=== PATIENT | female | born 1960 | race Caucasian/White ===

== ENCOUNTER 2020-02-27 18:26 | Emergency (ER) | payer OTHER, SELFPAY ==
--- NOTE | 2020-02-27 18:36 | ED.SKABFB ---
HPI - Skin/Abscess/Foreign Bdy General Chief complaint: Skin/Abscess/Foreign Body Stated complaint: insect bite Time Seen by Provider: 02/27/20 18:45 Source: patient and RN notes reviewed Mode of arrival: ambulatory Limitations: no limitations History of Present Illness HPI narrative: 59 female presents with concern for insect bite to her right upper arm. Reports she noticed the area was itching around 4:00 this morning. Reports noticing redness when she woke up. Reports been putting hydrocortisone cream on it and took Benadryl 1 time prior to arrival. She denies any difficulty breathing, swallowing, swollen tongue, swollen lips. MD complaint: insect bite/sting Related Data Home Medications Medication Instructions Recorded Confirmed acyclovir 400 mg BID 02/27/20 02/27/20 alprazolam 2 mg TID PRN 02/27/20 02/27/20 ascorbic [id number] 1,000 mg PO DAILY 02/27/20 02/27/20 [Emergen-C] calcium carbonate-vitamin D3 cap PO DAILY 02/27/20 [Calcium 600 + D(3)] ergocalciferol (vitamin D2) 1,250 mcg [id number] 02/27/20 02/27/20 linaclotide [Linzess] 145 mcg PO DAILY 02/27/20 02/27/20 omeprazole 40 mg DAILY 02/27/20 02/27/20 propranolol 5 mg BID 02/27/20 02/27/20 Allergies Allergy/AdvReac Type Severity Reaction Status Date / Time codeine Allergy Mild Palpitation Verified 02/27/20 18:31 s hydrocodone Allergy Unknown Unknown Verified 02/27/20 18:31 caffeine AdvReac Mild Palpitation Verified 02/27/20 18:31 s aspirin AdvReac Unknown Makes her Verified 02/27/20 18:31 blood too thin Review of Systems Review of Systems: Narrative: CONSTITUTIONAL: Denies malaise, chills, sweats, or fever. ENT: Denies swollen tongue, swollen lips, difficulty swallowing CARDIOVASCULAR: Denies chest pain, palpitations, or edema. RESPIRATORY: Denies cough or dyspnea. GASTROINTESTINAL: Denies abdominal pain, nausea, vomiting, diarrhea SKIN: Reports red itchy spot on her right upper arm All systems reviewed & are unremarkable except as noted in HPI and below PMFSH Social History Social History Gender identity (if verbalized by the patient): Female Comments At time of signature, agree with nursing past medical, surgical, social and family history. There is no relevant family history pertinent to the presenting complaint Exam Narrative: Exam Narrative: GENERAL: Well-appearing, well-nourished, and in no acute distress. HEAD: Normocephalic EYES: PERRLA, conjunctivae clear ENT: Mucous membranes moist. NECK: Supple. CHEST: No respiratory distress. Speaks in full sentences. HEART: Regular rate and rhythm. SKIN: Warm, dry. 5 cm a 4 cm area of erythema, mild edema, no induration, no warmth noted to the right upper arm, no other rash noted. NEURO: Alert and oriented x3. PSYCH: Normal mood and affect Course Course Emergency Course: Patient is aware of diagnosis, understands and agrees to treatment plan. Anticipatory guidance given. Patient agrees to follow-up as directed and is aware of reasons to seek care at the emergency department. Portions of this record may have been created with voice recognition software Vital Signs Vital signs: Vital Signs Temperature 98.3 F 02/27/20 18:39 Pulse Rate 72 02/27/20 18:39 Respiratory Rate 16 02/27/20 18:39 Blood Pressure 127/70 02/27/20 18:39 Pulse Oximetry 99 02/27/20 18:39 Temperature 98.3 F 02/27/20 18:39 Pulse Rate 72 02/27/20 18:39 Respiratory Rate 16 02/27/20 18:39 Blood Pressure 127/70 02/27/20 18:39 Pulse Oximetry 99 02/27/20 18:39 Reviewed. MDM - Skin/Abscess/Foreign Bdy MDM Narrative Medical decision making narrative: Does not appear at this time to be erythema multiforme, bullous, SJS, TEN; no evidence at this time to suggest RMSF, endocarditis or Lyme disease; patient looks well, nontoxic and is tolerating oral intake; no neurologic signs or symptoms; no headache, photophobia or neck pain; afebrile; appropriate for initial out
[2020-02-27 18:39] VITALS: BP 127/70; PULSE 72; RESP 16; TEMP 36.8; O2SAT 99
== END 2020-02-27 19:00 | disposition home or self-care (01) ==
PROVIDERS: Emergency Provider Nurse Practitioner; PCP Nurse Practitioner Family
DX: S40.861A Insect bite (nonvenomous) of right upper arm, initial encounter (principal); W57.XXXA Bitten or stung by nonvenomous insect and other nonvenomous arthropods, initial encounter; K21.9 Gastro-esophageal reflux disease without esophagitis
CPT/HCPCS: 99213; G0463

== ENCOUNTER 2020-10-30 10:31 | Emergency (ER) | payer OTHER, SELFPAY ==
[2020-10-30 10:48] VITALS: BP 135/68; PULSE 68; RESP 16; TEMP 36.4; O2SAT 99
[2020-10-30 10:59] VITALS: BP 135/68; PULSE 68; RESP 16; TEMP 36.4; O2SAT 99
--- NOTE | 2020-10-30 11:12 | ED.SKABFB ---
HPI - Skin/Abscess/Foreign Bdy General Chief complaint: Skin/Abscess/Foreign Body Stated complaint: Rash on Neck Time Seen by Provider: 10/30/20 10:49 Source: patient and RN notes reviewed Mode of arrival: ambulatory Limitations: no limitations History of Present Illness HPI narrative: Patient presents today complaining of a 4-day history of pruritic rash to her neck. States that she has woken up the last 2-3 nights with new lesions after sweating. Reports she lives alone with no pets. She has been using hydrocortisone, which does help shrink the lesions down. States she does have OCD and sprays her home down with insect killing sprays frequently. She does not have any other lesions on any other parts of her body. No new exposures to household products, plants or animals. MD complaint: rash Related Data Home Medications Medication Instructions Recorded Confirmed acyclovir 400 mg BID 02/27/20 10/30/20 alprazolam 2 mg TID PRN 02/27/20 10/30/20 ascorbic grcn-zeixqppr-guo 1,000 mg PO DAILY 02/27/20 10/30/20 [Emergen-C] calcium carbonate-vitamin D3 1 cap PO BID 02/27/20 10/30/20 [Calcium 600 + D(3)] ergocalciferol (vitamin D2) 1,250 mcg [id number] 02/27/20 10/30/20 linaclotide [Linzess] 145 mcg PO DAILY 02/27/20 10/30/20 omeprazole 20 mg DAILY 02/27/20 10/30/20 propranolol 5 mg BID 02/27/20 10/30/20 acetaminophen 500 mg PO Q4-6H PRN 10/30/20 10/30/20 albuterol sulfate [Ventolin HFA] 1 - 2 puff INHALATION Q4H PRN 10/30/20 10/30/20 Allergies Allergy/AdvReac Type Severity Reaction Status Date / Time caffeine AdvReac Mild Palpitation Verified 10/30/20 11:08 s aspirin AdvReac Unknown Makes her Verified 10/30/20 11:08 blood too thin Review of Systems Review of Systems: Narrative: CONSTITUTIONAL: Denies body aches, fever, chills, or sweats. EYES: Denies visual changes, redness, or discharge. ENT: Denies rhinorrhea, congestion, sore throat, or otalgia. CARDIOVASCULAR: Denies chest pain, palpitations, or edema. RESPIRATORY: Denies cough or dyspnea. GASTROINTESTINAL: Denies abdominal pain, nausea, vomiting, or diarrhea. GENITOURINARY: Denies dysuria or hematuria. SKIN: Denies wounds. + Rash MUSCULOSKELETAL: Denies back pain, joint pain, or myalgia. NEUROLOGIC: Denies headache, numbness, tingling, or weakness. PSYCH: Denies depression or anxiety. [facility] Past Medical History Medical History (Updated 10/30/20 @ 13:41 by Karolina Pruitt, [facility], ) Anxiety GERD (gastroesophageal reflux disease) Irritable bowel syndrome Mitral valve prolapse OCD (obsessive compulsive disorder) Surgical History Surgical History (Updated 10/30/20 @ 13:41 by Karolina Pruitt, [facility], ) H/O: hysterectomy Social History Social History Gender identity (if verbalized by the patient): Female Comments At time of signature, I have reviewed and agree with nursing past medical, surgical, social and family history unless otherwise noted. Please see nursing chart for further information. There is no relevant family history pertinent to the presenting complaint Exam Narrative: Exam Narrative: GENERAL: Well-appearing, well-nourished, and in no acute distress. HEAD: Normocephalic, atraumatic. EYES: EOMI. No redness or drainage. Conjunctivae normal. ENT: Mucous membranes pink and moist. NECK: Normal AROM. Supple. No lymphadenopathy. 2 ~1cm urticarial lesions to the posterior neck. 2 2mm scabbed lesions to the right neck that are older lesions that shrunk after applying cortisone cream. Patient also has a skin tag to the right anterior neck that she has been scratching and squeezing that is quite irritated. CHEST: No respiratory distress. EXTREMITIES: Normal range of motion. No edema. SKIN: Warm, dry. Capillary refill normal. Normal skin turgor. NEURO: No focal deficits. Alert and oriented x3. Gait steady. PSYCH: Normal affect. No signs of depression or anxiety. Course Vital Signs Vital signs: Vital Signs Te
== END 2020-10-30 11:21 | disposition home or self-care (01) ==
PROVIDERS: Emergency Provider Nurse Practitioner; PCP Nurse Practitioner Family
DX: L50.9 Urticaria, unspecified (principal); K21.9 Gastro-esophageal reflux disease without esophagitis; I34.1 Nonrheumatic mitral (valve) prolapse; F41.9 Anxiety disorder, unspecified; F42.9 Obsessive-compulsive disorder, unspecified
CPT/HCPCS: 99213; G0463

== ENCOUNTER 2022-01-17 12:23 | Outpatient (CLI) | payer OTHER, SELFPAY ==
--- NOTE | ~2022-01-17 | CT_ITS ---
EXAMINATION:CT lung screening DATE: 01/17/2022 12:46 INDICATION: Nicotine dependence, cigarettes, uncomplicated. Current smoker with 50 pack year history. TECHNIQUE: Computed tomography (CT) of the chest was performed without intravenous contrast. Automate d exposure control and iterative reconstruction technique were employed. The dose-length product (DLP ) was 58.44 mGy-cm. COMPARISON: Chest CT 11/01/2010 FINDINGS: There is mild emphysema. The lungs demonstrate minimal atelectasis. There is a 12 mm ground glass opacity in left lower lobe. There is a 13 mm groundglass opacity in left upper lobe. No pleura l effusion. No pleural effusion. The heart size is normal. No pericardial effusion. There is mild tho racic spondylosis. IMPRESSION: 1. Lung-RADS category 2: Benign appearance or behavior. Continue annual screening with noncontrast lo w-dose chest CT in 12 months. Reviewed, dictated and finalized at location B. IMPRESSION: 1. Lung-RADS category 2: Benign appearance or behavior. Continue annual screeni ng with noncontrast low-dose chest CT in 12 months.
== END 2022-01-17 12:24 | disposition home or self-care (01) ==
PROVIDERS: PCP Nurse Practitioner Family; Visit Provider Nurse Practitioner Family
DX: F17.210 Nicotine dependence, cigarettes, uncomplicated (principal)
CPT/HCPCS: 71271

== ENCOUNTER 2022-01-30 20:36 | Emergency (ER) | payer OTHER, SELFPAY ==
[2022-01-30 20:38] VITALS: BP 136/79; PULSE 78; RESP 18; TEMP 36.5; O2SAT 98
--- NOTE | 2022-01-30 21:04 | ED.DENTAL ---
HPI - Dental/Oral General Chief complaint: Dental/Oral Stated complaint: Roof of mouth pain Time Seen by Provider: 01/30/22 20:57 History of Present Illness HPI Narrative: 61-year-old female presents to the emergency room for evaluation of burning sensation to the roof of her mouth. Patient states 2 days ago she vomited twice, and afterwards noticed a flat white lesions on the roof of her mouth with a burning sensation. Patient states that she tried Tylenol and it did not help her symptoms. Related Data Home Medications Medication Instructions Recorded Confirmed acyclovir 400 mg tablet 400 mg BID 02/27/20 10/30/20 alprazolam 2 mg tablet 2 mg TID PRN Anxiety 02/27/20 10/30/20 ascorbic acid 1,000 1,000 mg PO DAILY 02/27/20 10/30/20 de-uhgollcbeuiq-ckcsauwo powder effervescent pack (Emergen-C) calcium carbonate 600 mg-vitamin 1 cap PO BID 02/27/20 10/30/20 D3 5 mcg (200 unit) capsule (Calcium 600 + D(3)) ergocalciferol (vitamin D2) 1,250 1,250 mcg [id number] 02/27/20 10/30/20 mcg (50,000 unit) capsule linaclotide 145 mcg capsule 145 mcg PO DAILY 02/27/20 10/30/20 (Linzess) omeprazole 40 mg capsule,delayed 20 mg DAILY 02/27/20 10/30/20 release propranolol 10 mg tablet 5 mg BID 02/27/20 10/30/20 acetaminophen 500 mg tablet 500 mg PO Q4-6H PRN Pain 10/30/20 10/30/20 albuterol sulfate 90 mcg/actuation 1 - 2 puff inhalation Q4H PRN 10/30/20 10/30/20 aerosol inhaler (Ventolin HFA) Shortness Of Breath Allergies Allergy/AdvReac Type Severity Reaction Status Date / Time caffeine AdvReac Mild Palpitation Verified 10/30/20 11:08 s aspirin AdvReac Unknown Makes her Verified 10/30/20 11:08 blood too thin Review of Systems Review of Systems: CONSTITUTIONAL: Denies fever, chills, or sweats. EYES: Denies visual changes, redness, or discharge. ENT: Reports mouth pain CARDIOVASCULAR: Denies chest pain, palpitations, or edema. RESPIRATORY: Denies cough or dyspnea. GASTROINTESTINAL: Denies abdominal pain, nausea, vomiting, or diarrhea. GENITOURINARY: Denies dysuria or hematuria. SKIN: Denies rash or itching. MUSCULOSKELETAL: Denies back pain, joint pain, or myalgia. NEUROLOGIC: Denies headache, numbness, dizziness, or weakness. PSYCHIATRIC: Denies anxiety or depression. [facility] Past Medical History Medical History Anxiety GERD (gastroesophageal reflux disease) Irritable bowel syndrome Mitral valve prolapse OCD (obsessive compulsive disorder) Surgical History Surgical History H/O: hysterectomy Social History Social History Gender identity (if verbalized by the patient): Female Exam Narrative: GENERAL: Well-appearing, well-nourished, no physical limitations, and in no acute distress. HEAD: Normocephalic, atraumatic. EYES: Conjunctivae normal, PERRLA and EOMI. ENT: Mucous membranes moist. Multiple discrete ulcerations to the roof of the mouth with erythematous margins CHEST: Clear to auscultation. No respiratory distress. No wheezes rales or rhonchi. No tenderness. HEART: Regular rate and rhythm. No murmur heard. Normal peripheral pulses. BACK: No CVA tenderness; No cervical/thoracic/lumbar tenderness, step-offs, bony abnormality; FROM EXTREMITIES: Normal range of motion. No edema. No clubbing or cyanosis SKIN: Warm, dry, no rash. No noted wounds NEURO: No focal deficits. Alert and oriented x3. MAEW. CN's II-XI intact bilaterally, normal gait PSYCH: Cooperative. Normal mood and affect. Course Vital Signs Vital signs: Vital Signs Temperature 36.5 C 01/30/22 20:38 Pulse Rate 78 01/30/22 20:38 Respiratory Rate 18 01/30/22 20:38 Blood Pressure 136/79 01/30/22 20:38 Pulse Oximetry 98 01/30/22 20:38 Oxygen Delivery Room Air 01/30/22 20:38 Temperature 36.5 C 01/30/22 20:38 Pulse Rate 78 01/30/22
[2022-01-30] MEDS: LIDOCAINE HCL 2% VISC SOLN 15 ML UDC (21:18)
== END 2022-01-30 21:25 | disposition home or self-care (01) ==
LOC: ANHED 21:07
PROVIDERS: Emergency Provider Nurse Practitioner Family; PCP Nurse Practitioner Family
DX: K12.0 Recurrent oral aphthae (principal); I34.1 Nonrheumatic mitral (valve) prolapse; K21.9 Gastro-esophageal reflux disease without esophagitis; K58.9 Irritable bowel syndrome, unspecified; F41.9 Anxiety disorder, unspecified; F42.9 Obsessive-compulsive disorder, unspecified; Z90.710 Acquired absence of both cervix and uterus
CPT/HCPCS: 96372; 99283; J1100

== ENCOUNTER 2022-09-21 12:43 | Outpatient (CLI) | payer OTHER, SELFPAY ==
--- NOTE | ~2022-09-21 | DEXA_ITS ---
Bone Density Report Name: LUIS ANGEL CLINTON Age: 62 Sex: Female Ethnicity: White Date of : 1960 Indication: postmenopausal; screening for osteoporosis; inflammatory bowel disease; prior fracture; asthma or emphysema; hysterectomy; Referring Provider: REFUGIODAR Study: Bone densitometry was performed. Exam Date: September 21, 2022 Accession number: [id number] Bone Density: Region BMD T-score Z-score Classification AP Spine(L1-L4) 0.788 -2.4 -0.9 Osteopenia Femoral Neck (Left) 0.527 -2.9 -1.6 Osteoporosis Total Hip (Left) 0.663 -2.3 -1.3 Osteopenia Femoral Neck (Right) 0.533 -2.8 -1.5 Osteoporosis Total Hip (Right) 0.660 -2.3 -1.3 Osteopenia Total Hip Mean 0.662 -2.3 -1.3 Osteopenia World Health Organization criteria for BMD impression classify patients as: Normal (T-score at or above -1.0), Osteopenia (T-score between -1.0 and -2.5), or Osteoporosis (T-score at or below -2.5). 10-year Fracture Risk: FRAX not reported because: Some T-score for Spine Total or Hip Total or Femoral Neck at or below -2.5 Treated for osteoporosis Clinical Information Provided by Patient: Has had a low trauma fracture Smokes Is being treated for osteoporosis Has used the following medications: Fosamax (i.e. alendronate), Vitamin D, Calcium Has the following medical conditions: Asthma or Emphysema, Inflammatory bowel diseases, Hysterectomy Patient maximum height was 61.5 Menopause Age: 34 Does not regularly consume dairy products Onset of menses at age 17 Number of children 4 Impression: The patient has established osteoporosis, based on the Left Femoral Neck T-score and the existence of a prior fracture. The patient has risk factors, including: smoking, previous fracture. Discussion: It is important to ask patients whether they are taking their medications and to encourage continued and appropriate compliance with their osteoporosis therapies to reduce fracture risk. It is also important to review their risk factors and encourage appropriate calcium and vitamin D intakes, exercise, fall prevention and other lifestyle measures. Follow-Up: Consider a repeat BMD and Vertebral Fracture Assessment (VFA) exam in 2 years or sooner if medically necessary, to reassess this patient's status. Reported by: LETTY on 09/21/2022 1:28:00 PM. Reviewed, dictated and finalized at location [facility] MAN[facility]LLA
--- NOTE | ~2022-09-21 | MM_ITS ---
EXAMINATION: MM screening indigo BI w gio HISTORY: Screening mammogram TECHNIQUE: Craniocaudal and mediolateral oblique 3-D tomosynthesis images were obtained and synthetic 2-D images were generated. CAD analysis was submitted and interpreted. COMPARISON: bilateral screening mammogram BREAST PARENCHYMAL COMPOSITION: There are scattered areas of fibroglandular density. FINDINGS: There is no evidence of suspicious mass, calcification, or architectural distortion to sugg est malignancy in either breast. There has been no suspicious interval change. IMPRESSION: 1. No mammographic evidence of malignancy. 2. Recommend routine screening mammography in one year. BI-RADS Category 1: Negative Reviewed, dictated and finalized at location A. [employer]
== END 2022-09-21 12:44 | disposition home or self-care (01) ==
PROVIDERS: PCP Nurse Practitioner Family; Visit Provider Nurse Practitioner Family
DX: Z12.31 Encounter for screening mammogram for malignant neoplasm of breast (principal); M81.0 Age-related osteoporosis without current pathological fracture; M85.88 Other specified disorders of bone density and structure, other site; M85.852 Other specified disorders of bone density and structure, left thigh; M85.851 Other specified disorders of bone density and structure, right thigh
CPT/HCPCS: 77063; 77067; 77080

== ENCOUNTER 2023-01-18 12:26 | Outpatient (CLI) | payer OTHER, SELFPAY ==
--- NOTE | ~2023-01-18 | CT_ITS ---
EXAMINATION: CT lung screening DATE: 01/18/2023 22:04 INDICATION: Nicotine dependence. TECHNIQUE: Computed tomography (CT) of the chest was performed without intravenous contrast. The dose -length product was 64.90 mGy-cm. Automated exposure control and iterative reconstruction technique w ere employed. COMPARISON: CT dated 01/17/2022 FINDINGS: Heart size is normal. No thoracic lymphadenopathy. No significant pleural or pericardial ef fusion. Upper abdomen is unremarkable. There is emphysema. No endobronchial lesions. Stable subtle gr oundglass opacities of the spares segment left lower lobe, most likely infectious/inflammatory. No en dobronchial lesions. No pneumothorax. No new pulmonary nodules or masses. There is a healed right moon th rib fracture posteriorly. IMPRESSION: 1. Lung-RADS category 2: Benign appearance or behavior. Continue annual screening with noncontrast lo w-dose chest CT in 12 months. Reviewed, dictated and finalized at location L. IMPRESSION: 1. Lung-RADS category 2: Benign appearance or behavior. Continue annual screeni ng with noncontrast low-dose chest CT in 12 months.
== END 2023-01-18 12:27 | disposition home or self-care (01) ==
LOC: ANHIMG 18:05
PROVIDERS: PCP Nurse Practitioner Family; Visit Provider Nurse Practitioner Family
DX: Z12.2 Encounter for screening for malignant neoplasm of respiratory organs (principal); F17.210 Nicotine dependence, cigarettes, uncomplicated
CPT/HCPCS: 71271

== ENCOUNTER 2023-12-11 14:35 | Outpatient (CLI) | payer OTHER, SELFPAY ==
--- NOTE | ~2023-12-11 | MM_ITS ---
EXAMINATION: MM screening indigo BI w gio HISTORY: Screening mammogram TECHNIQUE: Craniocaudal and mediolateral oblique 3-D tomosynthesis images were obtained and synthetic 2-D images were generated. CAD analysis was submitted and interpreted. COMPARISON: 11/19/2022, January 01, 2019 bilateral screening mammogram examinations BREAST PARENCHYMAL COMPOSITION: There are scattered areas of fibroglandular density. FINDINGS: There is no evidence of suspicious mass, calcification, or architectural distortion to sugg est malignancy in either breast. There has been no suspicious interval change. IMPRESSION: 1. No mammographic evidence of malignancy. 2. Recommend routine screening mammography in one year. BI-RADS Category 1: Negative Reviewed, dictated and finalized at location B.
== END 2023-12-11 14:36 | disposition home or self-care (01) ==
LOC: ANHIMG 14:38
PROVIDERS: PCP Nurse Practitioner Family; Visit Provider Nurse Practitioner Family
DX: Z12.31 Encounter for screening mammogram for malignant neoplasm of breast (principal)
CPT/HCPCS: 77063; 77067

== ENCOUNTER 2023-12-19 07:54 | Outpatient (CLI) | payer OTHER, SELFPAY ==
--- NOTE | ~2023-12-19 | CT_ITS ---
CT of the Abdomen and Pelvis: Indication: Weight loss Technique: 2.5 mm axial scans were obtained through the abdomen and pelvis following intravenous adm inistration of 98 cc of Omnipaque 350. Dose reduction technique was used on this scan by utilizing au tomated exposure control and iterative reconstruction technique. The dose-length product (DLP) was 18 4.53 mGy-cm. Findings: Scans through the lung bases are unremarkable. The liver, spleen, pancreas, gallbladder, adrenals and kidneys are within normal limits. There are at herosclerotic calcifications of the aorta. No lymphadenopathy. No bowel obstruction or bowel wall thickening. There is no evidence to suggest acute appendicitis. Images through the pelvis were performed. Urinary bladder unremarkable. No pelvic mass seen. No ascit es. Impression: No significant abnormalities seen. Reviewed, dictated and finalized at [facility]. Impression: No significant abnormalities seen.
[2023-12-19 08:27] LABS: Estimated Glomerular Filt Rate > 60
== END 2023-12-19 07:55 | disposition home or self-care (01) ==
LOC: ANHIMG 07:56
PROVIDERS: PCP Nurse Practitioner Family; Visit Provider Internal Medicine Gastroenterology
DX: R63.4 Abnormal weight loss (principal)
CPT/HCPCS: 74177; Q9967

== ENCOUNTER 2025-01-06 08:42 | Outpatient (CLI) | payer OTHER, SELFPAY ==
--- NOTE | ~2025-01-06 | MM_ITS ---
EXAMINATION: MM screening indigo BI w gio HISTORY: Screening TECHNIQUE: Craniocaudal and mediolateral oblique 3-D tomosynthesis images were obtained and synthetic 2-D images were generated. CAD analysis was submitted and interpreted. COMPARISON: Comparison to multiple prior studies sequentially, with oldest reviewed study dated 09/2017. BREAST PARENCHYMAL COMPOSITION: Dense: The breasts are heterogeneously dense, which may obscure small masses FINDINGS: There is no evidence of suspicious mass, calcification, or architectural distortion to sugg est malignancy in either breast. There has been no suspicious interval change. IMPRESSION: 1. No mammographic evidence of malignancy. 2. Recommend routine screening mammography in one year. BI-RADS Category 1: Negative Reviewed, dictated and finalized at location A.
== END 2025-01-06 08:43 | disposition home or self-care (01) ==
PROVIDERS: PCP Nurse Practitioner Family; Visit Provider Nurse Practitioner Family
DX: Z12.31 Encounter for screening mammogram for malignant neoplasm of breast (principal)
CPT/HCPCS: 77063; 77067